=== PATIENT | female | born 2000 | race Caucasian/White ===

== ENCOUNTER 2024-08-02 13:06 | Emergency (ER) | payer BC, SELFPAY ==
[2024-08-02] VITALS (8 sets, daily range): BP systolic 114–130; BP diastolic 63–86; PULSE 67–89
--- NOTE | 2024-08-02 14:52 | ED.GENMED ---
History of Present Illness
General
Chief Complaint: Headache
Source: patient
Exam Limitations: none
Time Seen by Provider: 08/02/24 14:18
Nursing documentation reviewed up to this point in time: agreed with
History of Present Illness
History of Present Illness:
Patient with history of anxiety, currently taking Lexapro for the past 2 years, presents to ED secondary to intermittent headache, dizziness, nausea, weakness, and fatigue, over the past 3 months. Dizziness appears to be brought on with any
positional changes, especially when sitting up or standing up from sitting position. In addition, over the past 3 months, her menstrual cycle has been more severe, with heavier bleeding, with symptoms appear to be more severe around her menstrual
cycle. Patient has been evaluated by her primary care physician and has had an outpatient blood work. Patient also has been taking empirically [id number] vitamins, without improving symptoms. At the recommendation of her primary care
physician, patient does have an appointment with neurologist in 2 weeks. Her outpatient blood work was told to be normal. Denies vomiting or diarrhea. Denies loss of appetite. Patient also states that she does not feel rested when she wakes up
in the morning recently. Denies sick contact. Denies significant weight gain or weight loss. Denies heat or cold intolerance. There is family history of headache. Patient has been taking Advil/Tylenol when she has headache, with improvement in
symptoms. At the time evaluation ED, patient states that her headache is not present. However, today, the reason for the visit to ED, patient felt extremely dizzy with near syncope, more so than usual.
Past History
Past History
ED Past Medical History: None
ED Past Surgical History: Other ([place] teeth)
Social History
Tobacco: Non-smoker
Alcohol: None
Drug: None
Personal: Single
Living: with family
Employment: Student
Family History
Family History: Other (Noncontributory)
Review of Systems
Review of Systems
Allergies reviewed?: Yes
All Other Systems: ROS reviewed and negative except as documented in HPI and ROS
Constitutional: Reports no symptoms
Respiratory: Reports no symptoms; Denies trouble breathing
Cardiac: Reports palpitations; Denies chest pain
ABD/GI: Reports nausea; Denies abdominal pain or vomiting
: Reports no symptoms
Musculoskeletal: Reports no symptoms
Skin: Reports no symptoms
Neurological: Reports dizzy, headache and weakness
Phy Exam
Physical Exam
Physical Exam:
Physical Exam
General: no apparent distress, not acutely ill. afebrile
Head: nc/at. eomi
Neck: supple. no meningeal signs.
Heart: s1/s2 regular rate and rhythm, no murmur. equal radial pulses.
Lungs: no acute respiratory distress. clear bilaterally
Abdomen: normal bowel sounds. not tender.
Neuro: alert and oriented. no focal neurological deficits
Skin: no rash
Psychiatric: well kept. interactive and cooperative
Extremities: no edema. no calf tenderness.
Course
Orders/Labs/Results
Orders:
Orders
08/02/24 13:20
EKG [Electrocardiogram (*1)] Urgent
Reason for Study: Palpitations
EKG- Treatment ONCE
08/02/24 14:33
Orthostatic VS- Treatment ONCE
08/02/24 14:34
CT Head W/o Iv Contrast Urgent
Comment:
Reason For Exam: headache/dizziness
Test Result ONCE
08/02/24 14:56
COVID-19 Antigen Urgent
Source: Nasal Swab
Complete Blood Count/With Diff Urgent
Comprehensive Metabolic Panel Urgent
Folate Urgent
HCG, Serum Qualitative Screen Urgent
Magnesium Urgent
Monotest Urgent
TSH Urgent
Vitamin B12 Urgent
08/02/24 18:13
Urinalysis Reflex To Culture Urgent
Date Specimen was Collected: 08/02/24
Time Specimen was Collected: 17:46
Urine Microscopic Reflex Cult Urgent
Abnormal Lab Results
08/02/24 08/02/24
14:56 18:13
MPV 10.6 H fL
(7.4-10.4)
Alkaline Phosphatase 34 L U/L
(38-126)
Ur Occult Blood Reflex 4+ A
(Negative)
Urine Bacteria (Reflex) Few A
(Negative)
08/02/24 14:56
08/02/24 14:56
Vital Signs
Initial and Last Documented VS:
Initial Vital Signs
Temp Pulse Resp BP Pulse Ox
98.0 F 79 18 122/71 97
08/02/24 13:12 08/02/24 13:12 08/02/24 13:12 08/02/24 13:12 08/02/24 13:12
Last Documented Vital Signs
Temp Pulse Resp BP Pulse Ox
98 F 84 20 124/64 98
08/02/24 13:17 08/02/24 18:56 08/02/24 18:56 08/02/24 18:56 08/02/24 18:56
MDM/Problems Addressed
MDM/Problems Addressed:
Patient with an unremarkable workup in ED, including blood work and CT head. Patient otherwise remains afebrile, hemodynamically stable, and nontoxic-appearing, during extended course of observation ED. Patient with nonspecific symptoms, possibly
migraine headache driving her symptoms, with symptoms worsening around her menstrual cycle. Patient will be advised to take Tylenol/Motrin for symptomatic relief, along with an outpatient consultation with already scheduled neurologist next month.
*Critical Care Note
Total Time (30-74mins, 75-104mins- exclusive of procedures): Not Applicable
ED Attending Note
-
Portions of this chart may have been created with voice recognition software.� Occasional wrong word or��sound alike� substitutions may have occurred due to the inherent limitations of voice recognition software.
Discharge Plan
Departure
Patient Disposition: Home (Routine Discharge)
Date of Disposition: 08/02/24
Time of Disposition: 18:27
Patient with high blood pressure during this ER visit?: Yes
Condition: Good
Discharge Problem:
Headache
Instructions: Headache, Adult (DC)
Prescriptions:
No Action
albuterol sulfate [Proventil HFA] 90 MCG/PUFF HFA aerosol inhaler
1 puff inhalation Q4HPRN PRN (Reason: shortness of breath) Qty: 1 0RF
sertraline [Zoloft] 20 mg/mL Concentrate
10 mg PO DAILY
Referrals:
Arelis Quinn NP [Family Provider] -
Activity Restrictions/Additional Instructions:
As discussed, please follow-up with your primary care physician as well as neurologist for further evaluation and treatment.
Interventions
Interventions:
*Risk Screen - Suicide Last Done: 08/02/24 13:17
*Neglect/Abuse Screening Last Done: 08/02/24 13:17
*ED COVID-19 Vaccine History Last Done: 08/02/24 14:30
*Nursing Disposition Last Done: 08/02/24 18:56
ED- Cardiac Assessment Last Done: 08/02/24 14:30
ED- Neurological Assessment Last Done: 08/02/24 14:30
Discharge Date and Time
Discharge Date/Time: 08/02/24 18:58
Print Language: CZECH
[2024-08-02 15:17] LABS: % Basophils 0.6 % (0-2); % Eosinophils 1.2 % (0-6); % Immature Granulocytes 0.3 % (0-0.5); % Lymphocytes 23.6 % (20.5-51.1); % Monocytes 4.8 % (1.7-9.3); % Neutrophils 69.5 % (42.2-75.2); Absolute Eosinophils 0.1 10^3/uL (0-0.7); Absolute Lymphocytes 1.6 10^3/uL (1.2-3.4); Absolute Monocytes 0.3 10^3/uL (0.1-0.6); Absolute Neutrophils 4.7 10^3/uL (1.4-6.5); Hematocrit 40.9 % (37.0-47.0); Hemoglobin 13.5 g/dL (12.0-16.0); Mean Corpuscular Hgb 29.2 pg (27.0-31.0); Mean Corpuscular Volume 88.5 fL (81.0-99.0); Mean Platelet Volume 10.6 fL (7.4-10.4); Nucleated Red Blood Cells % 0 %; Platelet Count 224 10^3/uL (130-400); Red Blood Cell Count 4.62 10^6/uL (4.20-5.40); Red Cell Dist. Width 12.3 % (11.5-14.5); White Blood Cell Count 6.7 10^3/uL (4.8-10.8)
[2024-08-02 15:27] LABS: HCG, Serum Qualitative Screen Negative
[2024-08-02 15:31] LABS: ALT (SGPT) 19 U/L (0-35); AST (SGOT) 24 U/L (14-36); Albumin 4.7 g/dl (3.5-5.0); Alkaline Phosphatase 34 U/L (38-126); Blood Urea Nitrogen 12 mg/dl (7-17); Calcium 9.1 mg/dl (8.4-10.2); Carbon Dioxide 26 mmol/L (22-30); Chloride 104 mmol/L (98-107); Glucose 79 mg/dl (70-99); Magnesium 2.2 mg/dl (1.6-2.3); Potassium 4.1 mmol/L (3.5-5.1); Sodium 141 mmol/L (135-145); Total Bilirubin 0.7 mg/dl (0.2-1.3); Total Protein 7.4 g/dl (6.3-8.2); eGFR > 60.00
[2024-08-02 15:34] LABS: Monotest Negative (Negative)
[2024-08-02 15:41] LABS: COVID-19 Antigen Negative (Negative)
[2024-08-02 16:02] LABS: TSH 1.19 uIU/ml (0.47-4.68)
[2024-08-02 16:37] LABS: Folate 8.3 ng/ml (2.76-20); Vitamin B12 385 pg/ml (239-931)
[2024-08-02 18:22] LABS: Urine Albumin Negative (Neg - Trace); Urine Bilirubin Negative (Negative); Urine Character Clear (Clear); Urine Color Straw; Urine Glucose Negative (Negative); Urine Ketone Negative (Negative); Urine Leukocyte Negative (Negative); Urine Nitrite Negative (Negative); Urine Occult Blood 4+ (Negative); Urine Urobilinogen Negative (Neg - 1+)
[2024-08-02 18:33] LABS: Urine Bacteria Few (Negative); Urine Red Blood Cell 0-2 /HPF (0-2); Urine White Cell 0-2 /HPF (0-5)
== END 2024-08-02 18:58 | disposition home or self-care (01) ==
LOC: EMR 13:06
PROVIDERS: EMERGENCY PHYSICIAN Emergency Medicine; FAMILY PHYSICIAN Nurse Practitioner Family
DX: R51.9 Headache, unspecified (principal); F41.9 Anxiety disorder, unspecified
CPT/HCPCS: 99284; 70450; 80053; 81003; 81015; 82607; 82746; 83735; 84443; 84703; 85025; 86308; 87811; 93005

== ENCOUNTER → 2024-12-09 07:45 | Outpatient (REF) | payer BC, SELFPAY | LOC: HWRAD 07:45 | PROVIDERS: ATTENDING PHYSICIAN Otolaryngology; FAMILY PHYSICIAN Nurse Practitioner Family | DX: J01.01 Acute recurrent maxillary sinusitis (principal) | CPT/HCPCS: 70486 ==